=== PATIENT | female | born 1960 | race Caucasian/White ===

== ENCOUNTER 2021-10-11 18:05 | Emergency (ER) | payer BC | END 2021-10-11 18:40 | disposition home or self-care (01) | LOC: LB.ED 18:05 | DX: H18.891 Other specified disorders of cornea, right eye (principal) | CPT/HCPCS: 99283 ==

== ENCOUNTER 2024-09-26 09:01 | Emergency (ER) | payer OTHER ==
[2024-09-26] MEDS ORDERED: Sodium Chloride 0.9% 10 ML Syringe FLUSH PRN (09:58)
[2024-09-26 10:09] LABS: HEMATOCRIT 38.2 % (37.0-47.0); HEMOGLOBIN 12.6 g/dL (11.5-16.5); MEAN CORPUSCULAR HEMOGLOBIN 29.6 pg (27.0-32.0); MEAN PLATELET VOLUME 10.6 fL (6.0-10.0); RED BLOOD CELL COUNT 4.26 M/uL (3.80-5.80); RED CELL DISTRIBUTION WIDTH 12.8 % (11.0-16.0); WHITE BLOOD CELL COUNT,WBC 13.3 K/uL (4.0-11.0)
[2024-09-26 10:32] LABS: BILIRUBIN TOTAL 0.7 mg/dL (0.0-1.0)
[2024-09-26 10:45] LABS: APPEARANCE,URINE CLEAR (CLEAR); COLOR,URINE YELLOW; GLUCOSE,URINE NEGATIVE (NEGATIVE); PROTEIN,URINE NEGATIVE (NEGATIVE)
[2024-09-26 10:46] LABS: BILIRUBIN,URINE NEGATIVE (NEGATIVE); KETONES,URINE NEGATIVE (NEGATIVE); LEUKOCYTE ESTERASE,URINE NEGATIVE (NEGATIVE); NITRITE,URINE POSITIVE (NEGATIVE); OCCULT BLOOD,URINE TRACE-INTACT (NEGATIVE); UROBILINOGEN,URINE 0.2 E.U./dL (0.2-1.0)
[2024-09-26 10:54] LABS: RBC,URINE 0-5 /HPF; SQUAMOUS EPITHELIAL CELLS,UR OCCASIONAL /HPF; WBC,URINE 0-5 /HPF
[2024-09-26 10:56] LABS: BACTERIA,URINE MODERATE /HPF
[2024-09-26 11:01] LABS: ALBUMIN 3.7 g/dL (3.4-5.0); ANION GAP 14.4 mmol/L (5.0-15.0); BUN/CREATININE RATIO 15.6 (6-25); C-REACTIVE PROTEIN 37.7 mg/L (<5.0); CALCIUM 9.1 mg/dL (8.5-10.1); CARBON DIOXIDE,CO2 27.1 mmol/L (21.0-32.0); CREATININE 0.96 mg/dL (0.55-1.02); EST CRCL DRUG DOSING (CG) 57.57 mL/min; POTASSIUM,K 4.5 mmol/L (3.5-5.1); PROTEIN TOTAL,TP 7.3 g/dL (6.4-8.2)
[2024-09-26] MEDS: Sodium Chloride 0.9% 50 ML SDV FLUSH ONE (11:10)
[2024-09-26] MEDS: Iopamidol 612 MG/ML 100 ML Bottle IV SCH (11:10)
[2024-09-26] MEDS ORDERED: Ciprofloxacin 500 MG Tab PO ONE (11:28)
[2024-09-26] MEDS: metroNIDAZOLE/Normal Saline 500 MG in Premix Bag 1 BAG IV ONE (11:37)
[2024-09-26] MEDS ORDERED: metroNIDAZOLE 500 MG Tab ONE (12:00)
[2024-09-26] MEDS ORDERED: Sulfamethoxazole/Trimethoprim 800-160 MG Tab ONE (12:00)
[2024-09-26] MEDS: Sulfamethoxazole/Trimethoprim 800-160 MG Tab PO ONE (12:28)
== END 2024-09-26 12:44 | disposition home or self-care (01) ==
LOC: LB.ED 09:01
DX: K57.32 Diverticulitis of large intestine without perforation or abscess without bleeding (principal); I10 Essential (primary) hypertension; E78.00 Pure hypercholesterolemia, unspecified; Z88.1 Allergy status to other antibiotic agents; Z88.8 Allergy status to other drugs, medicaments and biological substances; Z79.85 Long-term (current) use of injectable non-insulin antidiabetic drugs; Z79.899 Other long term (current) drug therapy
CPT/HCPCS: 36415; 74178; 80053; 81001; 85027; 86140; 87086; 96365; 99284; 99284-25; A9270-GY; J1836; J3490; Q9967